=== PATIENT | male | born 1980 | race Caucasian/White ===

== ENCOUNTER → 2018-07-05 08:57 | Outpatient (CLI) | payer BC, SELFPAY ==
[2018-07-05 11:39] LABS: Hemoglobin A1C 9.7 % (4.5-6.2)
[2018-07-05 11:41] LABS: ALT 35 U/L (12-78); AST 22 U/L (15-37); Alkaline Phosphatase 56 U/L (46-116); BUN 15 mg/dL (7-18); Bilirubin, Total 0.5 mg/dL (0.2-1.0); CREATININE 0.91 mg/dL (0.70-1.30); Calcium 8.7 mg/dL (8.5-10.1); Chloride 104 mmol/L (98-107); Cholesterol 180 mg/dL (50-200); Glucose 211 mg/dL (70-100); HDL Cholesterol 49 mg/dL (40-60); LDL CHOLESTEROL 118 mg/dL (<100); Potassium 4.5 mmol/L (3.5-5.1); Sodium 140 mmol/L (136-145); Triglyceride 68 mg/dL (30-150)
[2018-07-05 13:08] LABS: COMMENT (LAB VIEW ONLY) 205.26 mg/dL; Microalb ug/mg Crea 13.1 ug/mg Cr
== END ==
PROVIDERS: PCP Family Medicine; Visit Provider Family Medicine
DX: E11.9 Type 2 diabetes mellitus without complications (principal); E78.5 Hyperlipidemia, unspecified; I10 Essential (primary) hypertension
CPT/HCPCS: 36415; 80053; 80061; 83721; 82043; 82570; 83036

== ENCOUNTER 2019-07-29 02:02 | Outpatient (CLI) | payer BC, SELFPAY ==
[2019-07-29 09:21] LABS: HCT 47.1 % (40.0-50.0); HGB 16.3 g/dL (13.5-17.5); Mean Corp. HGB Concentration 34.6 g/dL (32.0-36.0); Mean Corpuscular Hemoglobin 30.2 pg (27.0-33.0); Mean Corpuscular Volume 87.4 fL (80-95); Mean Platelet Volume 12.1 fL (8.0-11.0); Platelet Count 214 x1000/uL (130-400); RBC 5.39 m/cumm (4.50-6.00); RBC Distribution Width 13.2 % (11.8-14.1); White Blood Cell Count 7.07 k/cumm (4.4-10.8)
[2019-07-29 09:30] LABS: Hemoglobin A1C 9.3 % (4.5-6.2)
[2019-07-29 10:02] LABS: COMMENT (LAB VIEW ONLY) 104.34 mg/dL; Microalb ug/mg Crea 40.5 ug/mg Cr
[2019-07-29 10:07] LABS: ALT 38 U/L (16-63); AST 18 U/L (15-37); Albumin 4.2 g/dL (3.4-5.0); Alkaline Phosphatase 70 U/L (46-116); Anion Gap 10.1 mmol/L (3-11); BUN 14 mg/dL (7-18); Bilirubin, Total 0.6 mg/dL (0.2-1.0); CO2 27.9 mmol/L (21.0-32.0); CREATININE 0.85 mg/dL (0.70-1.30); Calcium 9.6 mg/dL (8.5-10.1); Calculated LDL 141 mg/dL; Chloride 99 mmol/L (98-107); Cholesterol 209 mg/dL (50-200); Glucose 294 mg/dL (70-100); HDL Cholesterol 48 mg/dL (40-60); Potassium 4.4 mmol/L (3.5-5.1); Sodium 137 mmol/L (136-145); Total Protein 7.6 g/dL (6.4-8.2); Triglyceride 100 mg/dL (30-150)
== END 2019-07-29 02:22 ==
PROVIDERS: PCP Family Medicine; Visit Provider Family Medicine
DX: Z00.00 Encounter for general adult medical examination without abnormal findings (principal); E78.5 Hyperlipidemia, unspecified; E11.9 Type 2 diabetes mellitus without complications
CPT/HCPCS: 36415; 80053; 80061; 85027; 82043; 82570; 83036

== ENCOUNTER 2020-03-26 01:12 | Outpatient (CLI) | payer BC, SELFPAY ==
[2020-03-26 11:00] LABS: Hemoglobin A1C 8.2 % (3.8-5.6)
[2020-03-26 11:37] LABS: ALT 52 U/L (16-63); AST 23 U/L (15-37); Albumin 4.1 g/dL (3.4-5.0); Alkaline Phosphatase 61 U/L (46-116); Anion Gap 7.5 mmol/L (3-11); BUN 18 mg/dL (7-18); Bilirubin, Total 0.4 mg/dL (0.2-1.0); CO2 29.5 mmol/L (21.0-32.0); CREATININE 0.97 mg/dL (0.70-1.30); Calcium 9.5 mg/dL (8.5-10.1); Calculated LDL 82 mg/dL (<100); Chloride 100 mmol/L (98-107); Cholesterol 146 mg/dL (<200); Glucose 218 mg/dL (74-106); HDL Cholesterol 44 mg/dL (40-60); Potassium 4.9 mmol/L (3.5-5.1); Sodium 137 mmol/L (136-145); TSH (W/Ref FT4) 1.39 uIU/mL (0.36-3.74); Total Protein 7.2 g/dL (6.4-8.2); Triglyceride 103 mg/dL (<150)
[2020-03-28 17:16] LABS: Testosterone, Total 313 ng/dL (240-950)
== END 2020-03-26 01:32 ==
PROVIDERS: PCP Family Medicine; Visit Provider Family Medicine
DX: E11.69 Type 2 diabetes mellitus with other specified complication (principal); E78.5 Hyperlipidemia, unspecified; I10 Essential (primary) hypertension; N52.9 Male erectile dysfunction, unspecified
CPT/HCPCS: 36415; 80053; 80061; 84403; 83036; 84443

== ENCOUNTER 2020-06-24 15:07 | Outpatient (CLI) | payer BC, SELFPAY ==
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
== END 2020-06-24 15:27 ==
PROVIDERS: PCP Family Medicine; Visit Provider Family Medicine
DX: M77.32 Calcaneal spur, left foot (principal); S99.922A Unspecified injury of left foot, initial encounter
CPT/HCPCS: 73650

== ENCOUNTER 2020-07-20 14:14 | Emergency (ER) | payer BC, SELFPAY ==
[2020-07-20 14:41] VITALS: BP 105/77; PULSE 74; RESP 16; TEMP 36; O2SAT 98
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
[2020-07-20] MEDS: Lidocaine 1% Multi-Dose 50 ML VIAL IJ (15:00)
[2020-07-20] MEDS: Bupivacaine 0.5% Pres-Free 30 ML VIAL (15:00)
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
--- NOTE | 2020-07-20 15:37 | DI.VRAD_ITS ---
PROCEDURE INFORMATION: Exam: XR Left Foot Complete Exam date and time: 07/20/2020 3:30 PM Age: 40 years old Clinical indication: Pain; Lower leg; Left TECHNIQUE: Imaging protocol: XR Left foot. Views: 3 or more views. COMPARISON: CR XR HEEL LT OS CALCIS 06/24/2020 2:54 PM FINDINGS: Bones/joints: Plantar calcaneal spur. No acute fracture or dislocation. Soft tissues: Soft tissue defect in the dorsum of the foot. Underlying ulcer or injury is not excluded. IMPRESSION: 1. Soft tissue defect in the dorsum of the foot. Underlying ulcer or injury is not excluded. 2. No acute fracture or dislocation. Dictated and Authenticated by: Miguel Ross MD. Ordering:CAIT Lorenzana MD
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
[2020-07-20 17:09] LABS: Abs Immature Grans 0.18 10^3/uL (0.0-0.06); Absolute Lymphocyte Count 1.44 10^3/uL (1.2-3.4); Absolute Monocyte Count 1.21 10^3/uL (0.1-0.8); Basophils % 0.4; Eosinophils % 0.1; HCT 49.4 % (40.0-50.0); HGB 16.6 g/dL (13.5-17.5); Lymphocytes % 7.6; MCH 30.2 pg (27.0-33.0); MCHC 33.6 % (32.0-36.0); MCV 89.8 fL (80-95); MPV 12.3 fL (8.0-11.0); Monocytes % 6.4; Neutrophils % 84.5; Nucleated RBC 0 %; Platelet Count 191 10^3/uL (130-400); RDW 12.8 % (11.8-14.1); WBC 18.92 10^3/uL (4.4-10.8)
[2020-07-20 17:10] LABS: Absolute Basophil Count 0.08 10^3/uL (0.0-0.2); Absolute Eosinophil Count 0.02 10^3/uL (0.0-0.7); Absolute Neutrophil Count 15.99 10^3/uL (1.2-6.7)
[2020-07-20] MEDS: ceFAZolin 2 GM/50 ML BAG IVPB (17:16)
[2020-07-20] MEDS: Normal Saline 1,000 ML 125 ML IV (17:18)
[2020-07-20 17:23] LABS: ALT 75 U/L (16-63); AST 34 U/L (15-37); Albumin 4.2 g/dL (3.4-5.0); Alkaline Phosphatase 50 U/L (46-116); Anion Gap 10.6 mmol/L (3-11); BUN 18 mg/dL (7-18); Bilirubin, Total 0.4 mg/dL (0.2-1.0); CO2 24.4 mmol/L (21.0-32.0); CREATININE 1.18 mg/dL (0.70-1.30); Calcium 9.6 mg/dL (8.5-10.1); Chloride 101 mmol/L (98-107); Glucose 192 mg/dL (74-106); Potassium 4.3 mmol/L (3.5-5.1); Sodium 136 mmol/L (136-145); Total Protein 7.6 g/dL (6.4-8.2)
[2020-07-20 18:55] VITALS: BP 122/77; PULSE 97; RESP 19; TEMP 37.4; O2SAT 94
== END 2020-07-20 18:55 | disposition short-term general hospital (02) ==
PROVIDERS: Emergency Provider Student in an Organized Health Care Education/Training Program; PCP Family Medicine
DX: S91.312A Laceration without foreign body, left foot, initial encounter (principal); S99.922A Unspecified injury of left foot, initial encounter; V27.4XXA Motorcycle driver injured in collision with fixed or stationary object in traffic accident, initial encounter; E11.69 Type 2 diabetes mellitus with other specified complication; E11.319 Type 2 diabetes mellitus with unspecified diabetic retinopathy without macular edema; Z79.84 Long term (current) use of oral hypoglycemic drugs; I10 Essential (primary) hypertension
CPT/HCPCS: 80053; 96361; 96365; 99285; 73590; 73610; 73630; 85025; J0690

== ENCOUNTER 2021-06-27 02:54 | Outpatient (CLI) | payer BC, SELFPAY ==
[2021-06-27 16:31] LABS: HCT 45.1 % (40.0-50.0); HGB 15.3 g/dL (13.5-17.5); MCH 30.3 pg (27.0-33.0); MCHC 33.9 % (32.0-36.0); MCV 89.3 fL (80-95); Platelet Count 207 10^3/uL (130-400); RBC 5.05 10^6/uL (4.36-5.78); RDW 12.2 % (11.8-14.1); RDW-SD 40.3 fL; WBC 7.47 10^3/uL (4.4-10.8)
[2021-06-27 16:49] LABS: Hemoglobin A1C 11.4 % (<5.7)
[2021-06-27 17:51] LABS: ALT 34 U/L (16-63); AST 14 U/L (15-37); Albumin 3.9 g/dL (3.4-5.0); Alkaline Phosphatase 77 U/L (46-116); Anion Gap 6.9 mmol/L (3-11); BUN 14 mg/dL (7-18); Bilirubin, Total 0.4 mg/dL (0.2-1.0); CO2 28.1 mmol/L (21.0-32.0); CREATININE 1.2 mg/dL (0.70-1.30); Calcium 9.3 mg/dL (8.5-10.1); Chloride 100 mmol/L (98-107); Glucose 469 mg/dL (74-106); Potassium 4.4 mmol/L (3.5-5.1); Sodium 135 mmol/L (136-145); TSH (W/Ref FT4) 1.93 uIU/mL (0.36-3.74); Total Protein 7.1 g/dL (6.4-8.2)
[2021-06-27 18:06] LABS: Calculated LDL 116 mg/dL (<100); Cholesterol 178 mg/dL (<200); HDL Cholesterol 40 mg/dL (40-60); Triglyceride 112 mg/dL (<150)
== END 2021-06-27 02:55 | disposition home or self-care (01) ==
LOC: LBO 02:54
PROVIDERS: PCP Family Medicine; Visit Provider Family Medicine
DX: E11.9 Type 2 diabetes mellitus without complications (principal); F41.8 Other specified anxiety disorders; R25.1 Tremor, unspecified
CPT/HCPCS: 36415; 80053; 80061; 85027; 83036; 84443

== ENCOUNTER 2021-12-17 11:12 | Outpatient (REF) | payer BC, SELFPAY ==
[2021-12-18 09:54] LABS: HIV-1/2 Ag & Ab Screen Negative (Negative)
[2021-12-18 10:08] LABS: Hepatitis C Ab w Rflx HCV PCR Negative (Negative)
== END 2021-12-17 11:13 | disposition home or self-care (01) ==
LOC: NCHCN 11:12
PROVIDERS: PCP Family Medicine; Visit Provider Family Medicine
DX: Z11.4 Encounter for screening for human immunodeficiency virus [HIV] (principal); Z11.59 Encounter for screening for other viral diseases
CPT/HCPCS: 86803; 87389

== ENCOUNTER 2022-04-08 08:12 | Outpatient (REF) | payer BC, SELFPAY ==
[2022-04-14 12:11] LABS: Testosterone, Free 19.9 ng/dL (4.46-17.1); Testosterone, Total 602 ng/dL (240-950)
== END 2022-04-08 08:13 | disposition home or self-care (01) ==
LOC: NCHCN 08:12
PROVIDERS: PCP Family Medicine; Visit Provider Family Medicine
DX: E11.9 Type 2 diabetes mellitus without complications (principal); I10 Essential (primary) hypertension; F41.8 Other specified anxiety disorders; F52.21 Male erectile disorder
CPT/HCPCS: 84402; 84403; 84443

== ENCOUNTER 2022-10-28 17:27 | Outpatient (REF) | payer BC, SELFPAY ==
[2022-10-28 21:17] LABS: HCT 47.5 % (40.0-50.0); HGB 16.1 g/dL (13.5-17.5); MCH 30.6 pg (27.0-33.0); MCHC 33.9 % (32.0-36.0); MCV 90 fL (80-95); MPV 11.9 fL (8.0-11.0); Platelet Count 209 10^3/uL (130-400); RBC 5.26 10^6/uL (4.36-5.78); RDW 12.9 % (11.8-14.1)
[2022-10-28 22:13] LABS: ALT 31 U/L (16-63); AST 19 U/L (15-37); Albumin 4.4 g/dL (3.4-5.0); Alkaline Phosphatase 71 U/L (46-116); BUN 17 mg/dL (7-18); Bilirubin, Total 0.3 mg/dL (0.2-1.0); Calcium 9.8 mg/dL (8.5-10.1); Chloride 101 mmol/L (98-107); Estimated GFR 96.97 (mL/min/1.73m2); Glucose 227 mg/dL (74-106); Potassium 3.7 mmol/L (3.5-5.1); Sodium 138 mmol/L (136-145); Total Protein 7.8 g/dL (6.4-8.2)
== END 2022-10-28 17:28 | disposition home or self-care (01) ==
LOC: NCHCN 17:27
PROVIDERS: PCP Family Medicine; Visit Provider Family Medicine
DX: I10 Essential (primary) hypertension (principal)
CPT/HCPCS: 80053; 85027

== ENCOUNTER 2023-02-11 12:36 | Outpatient (REF) | payer BC, SELFPAY ==
[2023-02-11 16:50] LABS: Hemoglobin A1C 7.4 % (<5.7)
== END 2023-02-11 12:37 | disposition home or self-care (01) ==
LOC: NCHCN 12:36
PROVIDERS: PCP Family Medicine; Visit Provider Family Medicine
DX: E11.9 Type 2 diabetes mellitus without complications (principal)
CPT/HCPCS: 83036

== ENCOUNTER 2025-02-12 13:17 | Outpatient (REF) | payer BC, SELFPAY ==
[2025-02-12 15:13] LABS: ALT 32 U/L (16-63); AST 20 U/L (15-37); Albumin 4.2 g/dL (3.4-5.0); Alkaline Phosphatase 59 U/L (46-116); Anion Gap 9.8 mmol/L (3-11); BUN 20 mg/dL (7-18); Bilirubin, Total 0.4 mg/dL (0.2-1.0); CO2 26.2 mmol/L (21.0-32.0); CREATININE 0.9 mg/dL (0.70-1.30); Calcium 9.9 mg/dL (8.5-10.1); Calculated LDL 175 mg/dL (<100); Chloride 104 mmol/L (98-107); Cholesterol 257 mg/dL (<200); Estimated GFR 108.68 (mL/min/1.73m2); Glucose 218 mg/dL (74-106); HDL Cholesterol 59 mg/dL (>or=40); Potassium 4.9 mmol/L (3.5-5.1); Sodium 140 mmol/L (136-145); Total Protein 7.6 g/dL (6.4-8.2); Triglyceride 119 mg/dL (<150)
[2025-02-12 16:44] LABS: COMMENT (LAB VIEW ONLY) 47.35 mg/dL; Microalb ug/mg Crea 9.7 ug/mg Cr
== END 2025-02-12 13:18 | disposition home or self-care (01) ==
LOC: NCHCN 13:17
PROVIDERS: PCP Family Medicine; Visit Provider Family Medicine
DX: E11.9 Type 2 diabetes mellitus without complications (principal); I10 Essential (primary) hypertension; E78.5 Hyperlipidemia, unspecified
CPT/HCPCS: 80053; 80061; 82043; 82570